=== PATIENT | male | born 1965 | race Caucasian/White ===

== ENCOUNTER 2017-09-05 04:06 | Emergency (ER) | payer OTHER, MEDICAID ==
[2017-09-05 06:29] LABS: ADD MAN DIFF? NO
[2017-09-05 06:31] LABS: BASOPHILS % 0.4 % (0.0-2.0); EOSINOPHILS % 0.2 % (0.0-7.0); HEMATOCRIT 47.3 % (42.0-52.0); HEMOGLOBIN 16.1 g/dl (14.0-18.0); LYMPHOCYTES % 8.8 % (15.0-51.0); MEAN CORPUSCULAR HEMOGLOBIN 31.4 pg (29.0-33.0); MEAN CORPUSCULAR VOLUME 92.4 fl (82.0-101.0); MEAN PLATELET VOLUME 8.7 fl (7.4-10.4); MONOCYTE # 0.7 10^3/ul (0.3-0.9); MONOCYTES % 6.7 % (0.0-11.0); NEUTROPHIL # 9.2 10^3/ul (1.6-7.5); NEUTROPHILS % 83.4 % (39.0-77.0); PLATELET COUNT 204 10^3/UL (140-415); RED BLOOD COUNT 5.12 10^6/ul (4.70-6.10); RED CELL DISTRIBUTION WIDTH 12.6 % (11.5-14.5)
[2017-09-05] MEDS: SOD CHLORIDE 0.9% 1,000 ML IV (06:33)
[2017-09-05] MEDS: morphine 4 MG/ML VIAL IV (06:33)
[2017-09-05] MEDS: ONDANSETRON 4 MG INJ IV (06:34)
[2017-09-05 06:50] LABS: ALANINE AMINOTRANSFERASE 37 IU/L (13-69); ALBUMIN 4.1 g/dl (3.3-4.9); ALBUMIN/GLOBULIN RATIO 1.41; ALKALINE PHOSPHATASE 83 IU/L (42-121); ANION GAP 14 (8-16); ASPARTATE AMINO TRANSFERASE 25 IU/L (15-46); BILIRUBIN,INDIRECT 0.7 mg/dl (0-1.1); BILIRUBIN,TOTAL 0.7 mg/dl (0.2-1.3); BLOOD UREA NITROGEN 10 mg/dl (7-20); CALCIUM 9.4 mg/dl (8.4-10.2); CARBON DIOXIDE 28 mmol/L (21-31); CHLORIDE 109 mmol/L (97-110); CREATININE 0.98 mg/dl (0.61-1.24); GLUCOSE 129 mg/dl (70-220); LIPASE 46 U/L (23-300); POTASSIUM 3.9 mmol/L (3.5-5.1); SODIUM 147 mmol/L (135-144)
[2017-09-05] MEDS: KETOROLAC 30 MG INJ IV (08:56)
== END 2017-09-05 10:34 | disposition home or self-care (01) ==
LOC: E/R 04:06
DX: N20.0 Calculus of kidney (principal); R40.2142 Coma scale, eyes open, spontaneous, at arrival to emergency department; R40.2252 Coma scale, best verbal response, oriented, at arrival to emergency department; R40.2362 Coma scale, best motor response, obeys commands, at arrival to emergency department; F17.210 Nicotine dependence, cigarettes, uncomplicated
CPT/HCPCS: 36415; 74176; 80053; 83690; 85025; 96374; 96375; 99285-25